=== PATIENT | male | born 1980 | race Caucasian/White ===

== ENCOUNTER → 2017-11-24 | Outpatient (CLI) | payer BC ==
--- NOTE | 2017-11-24 17:33 | CONS ---
CONSULTATION DATE OF SERVICE: 11/24/2017 37-year-old gentleman who has been evaluated [facility] for possible obstructive sleep apnea-hypopnea syndrome. HISTORY OF PRESENT ILLNESS/SLEEP-WAKE EVALUATION: Patient usual sleep schedule on working days from 10:00 p.m. to 6:00 a.m. and on the weekend it is at different times. Sometimes it takes more than 30 minutes for him to fall asleep, but not more than for 1 hour. He has TV set in bedroom. Usually sleeps on the side position or in other positions. He wakes up from sleep up to 4 times with up to 4 episodes of nocturia. According to his girlfriend, he snores and possibly has episodes of stopped breathing during the sleep. He may need starting to see dreams right at the beginning of falling asleep, although no history of sleep paralysis. No history of cataplexy. During the day the patient feels sleepy. [place] Sleepiness Scale increased to 11. He wakes up tired. He may take 1 nap after work around 4:00 pm. PAST MEDICAL HISTORY: Basically negative. PAST SURGICAL HISTORY: LASIK surgery on both eyes. MEDICATIONS: None. SOCIAL HISTORY: Negative for smoking. Alcohol consumption, once a week, beer. FAMILY HISTORY: Hypertension, acid reflux. REVIEW OF SYSTEMS: Multiple awakenings from sleep, sleepiness during the day, some episodes of dreaming while awake. PHYSICAL EXAM: GENERAL 37-year-old, a gentleman without distress. VITAL SIGNS BP 133/82, HR 60, RR 14, height 6 foot 0, weight 198.4, BMI 26.8, temperature 98, oxygen saturation at room air 99%. HEENT PERRLA, EOMI, evaluation of oropharynx showed extremely low position of soft palate. Mallampati IV. Restriction of nasal breathing and a wide neck 16-3/4 inches in circumference. NECK Supple, no JVD. Thyroid is not palpable. LUNGS Clear to percussion and to auscultation. Good air exchange. No wheezing or rhonchi. HEART S1, S2 regular. No murmurs, gallops, or rubs. ABDOMEN Soft and nontender. Bowel sounds are present. No organomegaly appreciated. EXTREMITIES No clubbing or cyanosis. [employer] Awake, alert, and oriented X3. Cranial nerves 2 to 7 intact. There is no fasciculation or atrophy. noted. No focal deficits observed. IMPRESSION: 1. Snoring, witnessed episodes of stopped breathing during the sleep, extremely low position of soft palate, sleepiness, wide neck. Obstructive sleep apnea-hypopnea syndrome. 2. Sleepiness with episodes of hypnagogic hallucinations. [place] Sleepiness Scale is 11, which is not very high, but the differential diagnosis should include possibility of narcolepsy. 3. Status post LASIK surgery bilaterally. PLAN: 1. Home sleep apnea test for evaluation of patient's breathing during the sleep. 2. Following plan after reviewing results of sleep study. 3. Sleep hygiene with regular time in bed for at least 8 hours. 4. No driving if feeling sleepiness. Thank you very much for referring this patient for consultation. Yusef Eugene MD, PhD, FAASM Diplomat of [employer] Supervisor of [facility] [place] MMODL / LEISAN: [id number] /
== END | disposition home or self-care (01) ==
LOC: SLEEP 16:13
PROVIDERS: ATTEND Internal Medicine
DX: G47.33 Obstructive sleep apnea (adult) (pediatric) (principal); Z98.890 Other specified postprocedural states
CPT/HCPCS: 99211

== ENCOUNTER → 2018-03-30 | Outpatient (CLI) | payer BC ==
--- NOTE | 2018-03-30 23:17 | MR ---
EXAMINATION TYPE: MR lumbar spine wo con DATE OF EXAM: 03/30/2018 COMPARISON: None HISTORY: Low back pain TECHNIQUE: Multiplanar, multisequence images of the lumbar spine were acquired. Lumbar vertebra have normal alignment. There is some narrowing and decreased signal in the disks at L 4-5 L5-S1. There is a large posterior left-sided L5-S1 lumbar disc herniation impinging on the latera l recess. There is small posterior L4-5 lumbar disc herniation. This is in the midline and towards th e right side. I see no bony destructive process. There is no compression fracture. There is no lumbar paraspinal mass. Sacroiliac joints appear intact. IMPRESSION: Large posterior left-sided L5-S1 lumbar disc herniation. Small posterior central and right-sided L4-5 lumbar disc herniation.
== END | disposition home or self-care (01) ==
LOC: RADMRIMAIN 19:19
PROVIDERS: ATTEND Internal Medicine
DX: M51.27 Other intervertebral disc displacement, lumbosacral region (principal)
CPT/HCPCS: 72148

== ENCOUNTER → 2018-05-25 | Outpatient (CLI) | payer BC ==
[2018-05-25 17:37] LABS: Basophils % (A) 1 %; Eosinophils # (A) 0.4 k/uL (0-0.7); Eosinophils % (A) 5 %; HCT 45.6 % (39.0-53.0); HGB 15.1 gm/dL (13.0-17.5); Lymphocytes # (A) 3.2 k/uL (1.0-4.8); Lymphocytes % (A) 37 %; MCH 33.7 pg (25.0-35.0); MCHC 33.1 g/dL (31.0-37.0); MCV 101.7 fL (80.0-100.0); Monocytes # (A) 0.6 k/uL (0-1.0); Monocytes % (A) 6 %; Neutrophils # (A) 4.3 k/uL (1.3-7.7); Neutrophils % (A) 49 %; Platelet Count 447 k/uL (150-450); RBC 4.48 m/uL (4.30-5.90); RDW 12.2 % (11.5-15.5); WBC 8.7 k/uL (3.8-10.6)
[2018-05-25 17:42] LABS: INR 0.9 (<1.2); Prothrombin Time 9.9 sec (9.0-12.0)
[2018-05-25 17:50] LABS: ALT 66 U/L (21-72); AST 35 U/L (17-59); Albumin 4.5 g/dL (3.5-5.0); Alkaline Phosphatase 60 U/L (38-126); Anion Gap 8 mmol/L; Bilirubin, Delta 0.2 mg/dL (0.0-0.2); Bilirubin,Unconjugated 0.3 mg/dL (0.0-1.1); Carbon Dioxide 28 mmol/L (22-30); Chloride 105 mmol/L (98-107); Glucose 88 mg/dL (74-99); Sodium 141 mmol/L (137-145); Total Bilirubin 0.5 mg/dL (0.2-1.3); Total Protein 7.2 g/dL (6.3-8.2)
[2018-05-25 17:52] LABS: Blood Urea Nitrogen 15 mg/dL (9-20)
== END | disposition home or self-care (01) ==
LOC: LABPAT 16:16
PROVIDERS: ATTEND Internal Medicine
DX: Z01.812 Encounter for preprocedural laboratory examination (principal)
CPT/HCPCS: 80051; 80076; 82565; 82947; 84520; 85025; 85610; 85730

== ENCOUNTER → 2018-06-08 | Outpatient (CLI) | payer BC | END | disposition home or self-care (01) | LOC: LABWHC1 10:00 | PROVIDERS: ATTEND Internal Medicine | DX: Z01.812 Encounter for preprocedural laboratory examination (principal) | CPT/HCPCS: 86850; 86900; 86901 ==

== ENCOUNTER 2018-06-19 12:55 | Day surgery (SDC) | payer BC ==
[2018-06-08 15:13] VITALS: BMI 27.3
[~2018-06-19 12:55] MED LIST: DEXAMETHASONE SOD PHOSPHATE 10 MG/ML 1 ML VIAL IV ONE; LACTATED RINGERS 1,000 ML IV SCH; LIDOCAINE 1% 20 ML VIAL (10MG/ML) FOR IV START INTRADERMA PRN; MIDAZOLAM (PF) 2 MG/2 ML VIAL IV PRN; SODIUM CHLORIDE 0.9% 1,000 ML IRRIGATION SCH; ceFAZolin IN SWFI 2 GM/20 ML SYRINGE IVP ONE; fentaNYL (PF) 50 MCG/ML 2 ML AMP IV PRN
[2018-06-19] MEDS ORDERED: ONDANSETRON 4 MG/2 ML VIAL IVP ONE (13:36)
[2018-06-19] MEDS ORDERED: MIDAZOLAM 2 MG/2 ML VIAL IV ONE (14:04)
[2018-06-19] MEDS ORDERED: fentaNYL (PF) 50 MCG/ML 2 ML AMP IV ONE (14:04)
[2018-06-19] MEDS ORDERED: BACITRACIN 50,000 UNIT, POLYMYXIN B 500,000 UNIT in SODIUM CHLORIDE 0.9% IRRIGATIO 1,00... IRRIGATION ONE (15:08)
[2018-06-19] MEDS ORDERED: SUCCINYLCHOLINE CHLORIDE 100 MG/5 ML SYR IV ONE (15:23)
[2018-06-19] MEDS ORDERED: MIDAZOLAM 2 MG/2 ML VIAL ONE (15:23)
[2018-06-19] MEDS ORDERED: ePHEDrine SULFATE/0.9% NACL/PF 50 MG/5 ML SYRINGE IV ONE (15:23)
[2018-06-19] MEDS ORDERED: fentaNYL (PF) 50 MCG/ML 2 ML AMP ONE (15:23)
[2018-06-19] MEDS ORDERED: GLYCOPYRROLATE 0.2 MG/ML 2 ML VIAL ONE (15:23)
[2018-06-19] MEDS ORDERED: PROPOFOL 10 MG/ML 20 ML VIAL IV ONE (15:23)
[2018-06-19] MEDS ORDERED: HYDROmorphone (PF) 1 MG/ML ONE (15:23)
[2018-06-19] MEDS ORDERED: THROMBIN (BOVINE) 5,000 UNIT VIAL TOPICAL ONE (15:29)
[2018-06-19] MEDS ORDERED: GELATIN SPONGE,ABSORB (LARGE) 1 EACH SPONGE TOPICAL ONE (15:30)
[2018-06-19] MEDS ORDERED: methylPREDNISolone ACETATE 40 MG/ML 1 ML VIAL INJ ONE (15:31)
[2018-06-19] MEDS ORDERED: LACTATED RINGERS 1,000 ML IV ONE ×2 (15:53)
[2018-06-19] MEDS ORDERED: BUPIVACAINE-EPI 0.5%-1:200,000 10 ML VIAL SQ ONE ×2 (15:53)
[2018-06-19] MEDS ORDERED: methylPREDNISolone ACETATE 40 MG/ML 1 ML VIAL MISCELLANE ONE (16:33)
[2018-06-19] MEDS ORDERED: HYDROmorphone 0.5 MG/0.5 ML SYRINGE IVP PRN ×2 (16:57→16:58)
[2018-06-19] MEDS ORDERED: BENZOCAINE/MENTHOL LOZENG 1 EACH LOZENGE MUCOUS MEM PRN (16:57)
[2018-06-19] MEDS ORDERED: HYDROmorphone 1 MG/ML 1 ML SYRINGE IVP PRN ×2 (16:57→16:58)
[2018-06-19] MEDS ORDERED: HYDROcodone/APAP 5-325MG 1 EACH TAB PO PRN ×2 (16:58)
[2018-06-19] MEDS ORDERED: KETOROLAC 30 MG/ML 1 ML VIAL IVP PRN (16:58)
[2018-06-19] MEDS ORDERED: TRIMETHOBENZAMIDE 100 MG/ML 2 ML VIAL IM PRN (16:58)
[2018-06-19] MEDS ORDERED: IBUPROFEN 200 MG TAB PO PRN (16:59)
[2018-06-19] MEDS ORDERED: SODIUM CHLORIDE 0.9% 1,000 ML IV SCH (17:00)
--- NOTE | 2018-06-19 17:11 | P.OP ---
Date of Procedure: 06/19/18 Preoperative Diagnosis: Herniated was pulposis L5-S1, left lower extremity radiculopathy, left lower extremity weakness, low back pain Postoperative Diagnosis: Same Anesthesia: GETA Pathology: none sent Condition: stable Disposition: PACU Description of Procedure: BRIEF OPERATIVE NOTE Preoperative Diagnosis: Herniated nucleus pulposus L5-S1, left lower extremity radiculopathy, left lower extremity weakness Postoperative Diagnosis: Same Procedure: Laminectomy and decompression L5-S1 Discectomy for decompression L5-S1 Use of fluoroscopic guidance Surgeon: Dr. Alvarez [employer] Manager: Rowdy Arvizu is present throughout the entire the case persistence during positioning, dissection, exposure, visualization, and all crucial elements of the case as well as closure. Anesthesia: General anesthesia Estimated blood loss: Approximately 50 mL Complications: None apparent Components implanted: None Disposition: To recovery room in good stable condition. OPERATIVE INDICATIONS The patient has been having issues in their lower back and lower extremities. He's been having severe low back and left lower extremity radicular pain and was having some weakness in his left lower extremity. Imaging showed a large extruded disc herniation at L5-S1 on the left which correlated well with his low back and lower extremity symptoms. He been through extensive conservative treatment however was continued have severe debility due to the disc herniation. The patient has been through conservative treatment. I felt that he would be a good candidate for laminectomy decompression with discectomy at L5 -S1 to help alleviate his symptoms and given the best chance of regaining strength in his left lower extremity. We discussed various treatment options including surgery, and the patient wishes to proceed with surgery We discussed the risk, patient's alternatives and benefits of surgery including but not limited to, risk of bleeding risk of infection, risk of need for further surgery , risk of decreased, loss of motion, loss of function, nerve damage, paralysis, heart attack, blindness and . OPERATIVE SUMMARY After discussing all the risks, patient alternatives and benefits at length, the patient elected to proceed with surgical intervention, signed informed consent, and presented for their procedure. The patient was seen and examined in the preoperative holding area and the surgical site was marked. The patient was given antibiotics and brought to the operating room. The patient was sedated and intubated by anesthesia in standard fashion. The patient was positioned on to the operating room table in a prone position on the appropriate frame which was well-padded and well molded. We were careful to pad any bony prominences and pressure points. We were careful to maintain the patient's cervical spine and good neutral alignment and position throughout. The patient was prepped and draped in a normal standard fashion. An appropriate timeout and keystone protocol performed. We were able to proceed with the surgery. Fluoroscopy was utilized to establish the appropriate level. The local wound area was infiltrated with local anesthetic. An incision was made at the midline longitudinally over the appropriate levels over L5-S1 approximately an inch and a half in length. Dissection was taken down subcutaneously to the level of the fascia which was split midline. Dissection was taken over the lamina. Intraoperative fluoroscopy was taken which showed a marker at the appropriate level at L5-S1. With the appropriate level positively confirmed, we were able to proceed with laminectomy. The wound was copiously irrigated and suctioned dry as had been done periodically throughout the case. I performed a laminectomy with a combination of curettes and a high-speed bur and Kerrison rongeurs. A small medial facetectomy was performed again further access. A partial foraminotomy was also performed. Portions of the ligamentum flavum were taken down to expose the dura and traversing nerve root. Note was made of obvious distortion and tension on the traversing nerve root due to a large extruded disc herniation. I was able to mobilize the traversing nerve root and gain access to the disc space. Note was made of obvious compression from the disc. Protecting the soft tissue structures, a small annulotomy was established. I was able to remove a very large extruded disc fragment from the space which gave excellent relief of the tension at the traversing nerve root. I was able to perform discectomy and remove any extruded disc fragments and any loose fragments from within the disc itself. There is some significant disc desiccation noted. I tried to preserve the disc annulus that appeared stable. There were some hard disc and posterior osteophytic spurs at the margins of the disc which I tried removed piecemeal as well. There were no further extruded fragments noted. There is no evidence of dural tear or leak. Good hemostasis maintained. The wound was copiously irrigated and suctioned dry. Good decompression and discectomy was noted. We were able to proceed with closure. The fascia was closed for a watertight closure. The subcuticular tissue was closed with absorbable suture. The wound was cleaned and dried and dressed with the appropriate dressing. The drapes were broken down. The patient was gently rolled back onto their hospital bed being careful to maintain their cervical spine and good neutral alignment and position. They were woken up by anesthesia, extubated, and brought to the recovery room in good stable condition. The patient will be admitted to the hospital for observation and for appropriate postoperative care, medical management and monitoring. We will continue to follow them closely about the postoperative course.
[2018-06-19 17:20] VITALS: TEMP 98.1
[2018-06-19 17:30] VITALS: RESP 16
[2018-06-19] MEDS ORDERED: SODIUM CHLORIDE 0.9% 1,000 ML IV ONE (18:10)
[2018-06-19 19:04] VITALS: BP 150/80; PULSE 86
[2018-06-20] MEDS ORDERED: ceFAZolin IN SWFI 2 GM/20 ML SYRINGE IVP SCH
--- NOTE | 2018-06-20 08:41 | FL ---
Fluoroscopy HISTORY: Lumbar laminectomy, discectomy 4 seconds fluoroscopy time supplied to the referring clinician. 1 intraoperative C-arm image documen ts the procedure. See dictated report from orthopedic surgery.
== END 2018-06-19 19:06 | disposition home or self-care (01) ==
LOC: OR 12:55
PROVIDERS: ATTEND Orthopaedic Surgery Orthopaedic Surgery of the Spine
DX: M51.17 Intervertebral disc disorders with radiculopathy, lumbosacral region (principal); M48.07 Spinal stenosis, lumbosacral region; M47.27 Other spondylosis with radiculopathy, lumbosacral region; M47.26 Other spondylosis with radiculopathy, lumbar region; E66.3 Overweight; Z68.27 Body mass index [BMI] 27.0-27.9, adult; Z79.1 Long term (current) use of non-steroidal anti-inflammatories (NSAID); F17.210 Nicotine dependence, cigarettes, uncomplicated
CPT/HCPCS: 86900; 86901; 86850; 63030; J2250; J1030; J2405; J3010; J1170; J0330; J2704

== ENCOUNTER 2019-05-12 15:49 | Emergency (ER) | payer BC ==
[2019-05-12 15:55] VITALS: TEMP 97.4
[2019-05-12] MEDS ORDERED: SODIUM CHLORIDE 0.9% 2,000 ML IV STA (16:10)
[2019-05-12] MEDS ORDERED: ONDANSETRON 4 MG/2 ML VIAL IVP STA (16:10)
--- NOTE | 2019-05-12 16:15 | ED ---
Abdominal Pain HPI - General Chief Complaint: Abdominal Pain Stated Complaint: ABDOMINAL PAIN Time Seen by Provider: 05/12/19 15:56 Source: patient, RN notes reviewed Mode of arrival: ambulatory Limitations: no limitations - History of Present Illness Initial Comments: 39-year-old male presents emergency Department chief complaint of bilateral flank pain, nausea vomiting. Patient states she's had a rough 3 weeks in which she's been treated multiple times for a respirator infection. Patient also stated that he had blood in his urine and they are unsure why. Patient does have a history of kidney stones. Patient denies any current dysuria or noted hematuria. Patient denies diarrhea constipation he states that his upper respiratory infection seems to be clearing up - Related Data Home Medications Medication Instructions Recorded Confirmed Ibuprofen [Motrin Ib] 800 mg PO Q4-6H PRN 06/08/18 06/19/18 Previous Rx's Medication Instructions Recorded HYDROcodone/APAP 5-325MG [[place] 5] 1 - 2 each PO Q6HR PRN #24 tab 06/19/18 Allergies Allergy/AdvReac Type Severity Reaction Status Date / Time No Known Allergies Allergy Verified 05/12/19 15:51 Review of Systems ROS Statement: Those systems with pertinent positive or pertinent negative responses have been documented in the HPI. ROS Other: All systems not noted in ROS Statement are negative. Past Medical History History of Any Multi-Drug Resistant Organisms: None Reported Additional Past Surgical History / Comment(s): partial laminectomy Past Psychological History: ADD/ADHD Smoking Status: Current every day smoker Past Alcohol Use History: Occasional Past Drug Use History: None Reported General Exam Limitations: no limitations General appearance: alert, in no apparent distress Head exam: Present: atraumatic, normocephalic, normal inspection Eye exam: Present: normal appearance, PERRL, EOMI. Absent: scleral icterus, conjunctival injection, periorbital swelling ENT exam: Present: normal exam, normal oropharynx, mucous membranes moist, TM's normal bilaterally Neck exam: Present: normal inspection, full ROM. Absent: tenderness, meningismus, lymphadenopathy Respiratory exam: Present: normal lung sounds bilaterally. Absent: respiratory distress, wheezes, rales, rhonchi, stridor Cardiovascular Exam: Present: regular rate, normal rhythm, normal heart sounds. Absent: systolic murmur, diastolic murmur, rubs, gallop, clicks GI/Abdominal exam: Present: soft, tenderness (Mild diffuse), normal bowel sounds. Absent: distended, guarding, rebound, rigid Back exam: Absent: CVA tenderness (R), CVA tenderness (L) Neurological exam: Present: alert, oriented X3 Skin exam: Present: warm, dry, intact, normal color. Absent: rash Course Vital Signs 05/12/19 15:51 Temperature 97.4 F L Pulse Rate 90 Respiratory 18 Rate Blood Pressure 129/84 O2 Sat by Pulse 99 Oximetry Medical Decision Making - Medical Decision Making Patient is greatly improved after antiemetics and IV fluids. Patient CT and labs unremarkable. He does have mild dehydration was hydrated. [facility] parameters were discussed. - Lab Data Result diagrams: 05/12/19 16:03 05/12/19 16:03 Lab Results 05/12/19 05/12/19 05/12/19 Range/Units 16:03 16:03 16:03 WBC 10.4 (3.8-10.6) k/uL RBC 4.89 (4.30-5.90) m/uL Hgb 16.3 (13.0-17.5) gm/dL Hct 48.3 (39.0-53.0) % MCV 98.9 (80.0-100.0) fL MCH 33.4 (25.0-35.0) pg MCHC 33.7 (31.0-37.0) g/dL RDW 11.7 (11.5-15.5) % Plt Count 445 (150-450) k/uL Neutrophils % 68 % Lymphocytes % 22 % Monocytes % 6 % Eosinophils % 0 % Basophils % 1 % Neutrophils # 7.0 (1.3-7.7) k/uL Lymphocytes # 2.3 (1.0-4.8) k/uL Monocytes # 0.6 (0-1.0) k/uL Eosinophils # 0.1 (0-0.7) k/uL Basophils # 0.1 (0-0.2) k/uL Sodium 139 (137-145) mmol/L Potassium 4.1 (3.5-5.1) mmol/L Chloride 99 (98-107) mmol/L Carbon Dioxide 29 (22-30) mmol/L Anion Gap 11 mmol/L BUN 9 (9-20) mg/dL Creatinine 0.78 (0.66-1.25) mg/dL Est GFR (CKD-EPI)AfAm >90 (>60 ml/min/1.73 sqM) Est GFR (CKD-EPI)NonAf >90 (>60 ml/min/1.73 sqM) Glucose 105 H (74-99) mg/dL Calcium 10.1 (8.4-10.2) mg/dL Magnesium 1.9 (1.6-2.3) mg/dL Total Bilirubin 1.0 (0.2-1.3) mg/dL AST 38 (17-59) U/L ALT 102 H (21-72) U/L Alkaline Phosphatase 103 (38-126) U/L Total Protein 7.9 (6.3-8.2) g/dL Albumin 4.7 (3.5-5.0) g/dL Amylase 104 (30-110) U/L Lipase 320 H (23-300) U/L Urine Color Yellow Urine Appearance Clear (Clear) Urine pH 8.0 (5.0-8.0) Ur Specific [place] 1.020 (1.001-1.035) Urine Protein Trace H (Negative) Urine Glucose (UA) Negative (Negative) Urine Ketones 2+ H (Negative) Urine Blood Negative (Negative) Urine Nitrite Negative (Negative) Urine Bilirubin Negative (Negative) Urine Urobilinogen <2.0 (<2.0) mg/dL Ur Leukocyte Esterase Negative (Negative) Disposition Clinical Impression: Nausea & vomiting, Dehydration Disposition: HOME SELF-CARE Condition: Stable Instructions (If sedation given, give patient instructions): Acute Nausea and Vomiting (ED) Additional Instructions: Please return to the Emergency Department if symptoms worsen or any other concerns. Is patient prescribed a controlled substance at d/c from ED?: No Referrals: Sebas Lopez MD [Primary Care Provider] - 1-2 days Time of Disposition: 17:06
[2019-05-12 16:19] LABS: Appearance,Urine Clear (Clear); Basophils # (A) 0.1 k/uL (0-0.2); Basophils % (A) 1 %; Bilirubin,Urine Negative (Negative); Blood,Urine Negative (Negative); Color,Urine Yellow; Eosinophils # (A) 0.1 k/uL (0-0.7); Eosinophils % (A) 0 %; Glucose,Urine (UA) Negative (Negative); HCT 48.3 % (39.0-53.0); HGB 16.3 gm/dL (13.0-17.5); Ketones,Urine 2+ (Negative); Leukocyte Esterase,Urine Negative (Negative); Lymphocytes # (A) 2.3 k/uL (1.0-4.8); Lymphocytes % (A) 22 %; MCH 33.4 pg (25.0-35.0); MCHC 33.7 g/dL (31.0-37.0); MCV 98.9 fL (80.0-100.0); Mean Platelet Volume 6.6; Monocytes # (A) 0.6 k/uL (0-1.0); Monocytes % (A) 6 %; Neutrophils % (A) 68 %; Nitrite,Urine Negative (Negative); Platelet Count 445 k/uL (150-450); Protein,Urine Trace (Negative); RBC 4.89 m/uL (4.30-5.90); RDW 11.7 % (11.5-15.5); Urobilinogen,Urine <2.0 mg/dL (<2.0); WBC 10.4 k/uL (3.8-10.6)
[2019-05-12 16:27] LABS: ALT 102 U/L (21-72); AST 38 U/L (17-59); African American GFR (CKD) >90 (>60 ml/min/1.73 sqM); Albumin 4.7 g/dL (3.5-5.0); Alkaline Phosphatase 103 U/L (38-126); Amylase 104 U/L (30-110); Anion Gap 11 mmol/L; Blood Urea Nitrogen 9 mg/dL (9-20); Calcium 10.1 mg/dL (8.4-10.2); Carbon Dioxide 29 mmol/L (22-30); Chloride 99 mmol/L (98-107); Glucose 105 mg/dL (74-99); Magnesium 1.9 mg/dL (1.6-2.3); Non-African American GFR(CKD) >90 (>60 ml/min/1.73 sqM); Potassium 4.1 mmol/L (3.5-5.1); Sodium 139 mmol/L (137-145); Total Protein 7.9 g/dL (6.3-8.2)
--- NOTE | 2019-05-12 16:48 | CT ---
EXAMINATION TYPE: CT abdomen pelvis w con DATE OF EXAM: 05/12/2019 COMPARISON: None. HISTORY: Bilateral flank and abdominal pain. Nausea, vomiting. CT DLP: 971.2 mGycm, Automated Exposure Control for Dose Reduction was Utilized. CONTRAST: CT scan of the abdomen and pelvis is performed without oral but with IV Contrast, patient injected wi th 100 mL of Isovue 300. FINDINGS: LUNG BASES: No significant abnormality is appreciated. LIVER/GB: No significant abnormality is appreciated. PANCREAS: No significant abnormality is seen. SPLEEN: No significant abnormality is seen. ADRENALS: No significant abnormality is seen. KIDNEYS: There is simple appearing thin-walled 1.5 cm cyst laterally right kidney mid to lower pole l evel. Symmetric cortical medullary uptake and excretion without hydronephrosis seen bilaterally. Scat tered pelvic phleboliths. BOWEL: Slightly suboptimal evaluation without enteric contrast. Normal-appearing appendix from cecum. No suspicious small or large bowel dilatation. Some diverticula in the sigmoid colon. No CT evidence for acute diverticulitis. PROSTATE/SEMINAL VESICLES: No gross abnormality seen. LYMPH NODES: No greater than 1cm abdominal or pelvic lymph nodes are appreciated. OSSEOUS STRUCTURES: Facet arthropathy lower lumbar levels. Mild to moderate disc space narrowing lumb osacral junction. 1 cm sclerotic lesion right proximal femur coronal image 56 suspicious for enchondr jayne or other benign etiology. OTHER: Small fat-containing right inguinal hernia. Scattered pelvic phleboliths. Moderate size umbili zaria hernia containing fat and tiny mesenteric vessels. IMPRESSION: No obstructing renal stones or hydronephrosis seen bilaterally. No bowel obstruction. No acute findings clearly seen.
[2019-05-12 17:34] VITALS: BP 142/99; PULSE 79; RESP 20
== END 2019-05-12 17:38 | disposition home or self-care (01) ==
LOC: EC 15:49
DX: E86.0 Dehydration (principal); R11.2 Nausea with vomiting, unspecified; R10.9 Unspecified abdominal pain; J06.9 Acute upper respiratory infection, unspecified; F17.200 Nicotine dependence, unspecified, uncomplicated; Z87.442 Personal history of urinary calculi
CPT/HCPCS: 36415; 80053; 82150; 83690; 83735; 85025; 81003; 74177; 99284; 96374; 96361; J2405; Q9967

== ENCOUNTER 2019-05-20 14:53 | Emergency (ER) | payer BC ==
[2019-05-20 15:09] VITALS: RESP 18
[2019-05-20] MEDS ORDERED: IBUPROFEN 800 MG TAB PO STA (16:11)
[2019-05-20] MEDS ORDERED: IPRATROPIUM-ALBUTEROL 3 ML NEB INHALATION STA (16:11)
--- NOTE | 2019-05-20 17:59 | XR ---
EXAMINATION TYPE: XR chest 2V DATE OF EXAM: 05/20/2019 COMPARISON: NONE HISTORY: Chest pain after coughing. Upper respiratory infection. TECHNIQUE: Frontal and lateral views of the chest are obtained. FINDINGS: There is no focal air space opacity, pleural effusion, or pneumothorax seen. The cardiac silhouette size is within normal limits. The osseous structures are intact. Mild multilevel degener ative changes of the spine. IMPRESSION: No acute cardiopulmonary process.
--- NOTE | 2019-05-20 18:07 | XR ---
EXAMINATION TYPE: XR lumbar spine 2 or 3V DATE OF EXAM: 05/20/2019 CLINICAL HISTORY: Back pain after coughing TECHNIQUE: Frontal and lateral images of the lumbar spine are obtained. COMPARISON: None FINDINGS: There is a very mild dextroscoliosis of the lumbar spine. There are 5 lumbar type vertebra l bodies identified. The lumbar spine shows satisfactory alignment without evidence of acute fractur e or dislocation. Vertebral body heights and disk space heights are within normal limits. Mild multil evel degenerative disc disease with intervertebral disc space narrowing at L4-L5 L5-S1 as well as fac et arthropathy. The overlying soft tissue appears unremarkable. IMPRESSION: No acute fracture or dislocation is seen in the lumbar spine. Mild multilevel degenerati ve disc disease of the lumbar spine.
--- NOTE | 2019-05-20 18:07 | XR ---
EXAMINATION TYPE: XR pelvis AP view DATE OF EXAM: 05/20/2019 CLINICAL HISTORY: Pelvic pain after coughing TECHNIQUE: A single AP view of the pelvis is obtained. COMPARISON: None. FINDINGS: There is no acute fracture/dislocation evident in the pelvis. Multiple phleboliths within the pelvis are noted. The hip and sacroiliac joints appear symmetric and unremarkable. The overlyin g soft tissue appears unremarkable. IMPRESSION: There is no acute fracture or dislocation in the pelvis.
[2019-05-20 18:55] VITALS: BP 121/81; PULSE 75; TEMP 98.7
--- NOTE | 2019-05-20 19:18 | ED ---
Back Pain HPI - General Chief Complaint: Back Pain/Injury Stated Complaint: Back pain Time Seen by Provider: 05/20/19 15:57 Source: patient Limitations: no limitations - History of Present Illness Initial Comments: Patient complains of cough. He states that he was coughing so hard he developed pain in the low back. He denies any nausea or vomiting or diaphoresis. He has no palpitations. He has no lightheadedness or dizziness. He has no focal weakness. He has no trouble tolerating oral intake. - Related Data Home Medications Medication Instructions Recorded Confirmed Ibuprofen [Motrin Ib] 800 mg PO Q4-6H PRN 06/08/18 06/19/18 Previous Rx's Medication Instructions Recorded HYDROcodone/APAP 5-325MG [[place] 5] 1 - 2 each PO Q6HR PRN #24 tab 06/19/18 Levofloxacin 750 mg PO DAILY #7 tablet 05/20/19 Methocarbamol [Robaxin-750] 1,500 mg PO TID PRN #30 tablet 05/20/19 Allergies Allergy/AdvReac Type Severity Reaction Status Date / Time No Known Allergies Allergy Verified 05/20/19 15:06 Review of Systems ROS Statement: Those systems with pertinent positive or pertinent negative responses have been documented in the HPI. ROS Other: All systems not noted in ROS Statement are negative. Past Medical History Past Medical History: No Reported History History of Any Multi-Drug Resistant Organisms: None Reported Additional Past Surgical History / Comment(s): partial laminectomy Past Psychological History: ADD/ADHD Smoking Status: Current every day smoker Past Alcohol Use History: Occasional Past Drug Use History: None Reported General Exam Limitations: no limitations General appearance: alert, in no apparent distress Head exam: Present: atraumatic, normocephalic, normal inspection Eye exam: Present: normal appearance, PERRL, EOMI. Absent: scleral icterus, conjunctival injection, periorbital swelling ENT exam: Present: normal exam, mucous membranes moist Neck exam: Present: normal inspection. Absent: tenderness, meningismus, lymphadenopathy Respiratory exam: Present: normal lung sounds bilaterally. Absent: respiratory distress, wheezes, rales, rhonchi, stridor Cardiovascular Exam: Present: regular rate, normal rhythm, normal heart sounds. Absent: systolic murmur, diastolic murmur, rubs, gallop, clicks GI/Abdominal exam: Present: soft, normal bowel sounds. Absent: distended, tenderness, guarding, rebound, rigid Extremities exam: Present: normal inspection, full ROM, normal capillary refill. Absent: tenderness, pedal edema, joint swelling, calf tenderness Back exam: Present: normal inspection Neurological exam: Present: alert, oriented X3, CN II-XII intact Psychiatric exam: Present: normal affect, normal mood Skin exam: Present: warm, dry, intact, normal color. Absent: rash Course Vital Signs 05/20/19 05/20/19 05/20/19 15:06 16:19 16:31 Temperature 99.5 F Pulse Rate 92 90 Respiratory 18 18 Rate Blood Pressure 135/88 O2 Sat by Pulse 99 Oximetry 05/20/19 05/20/19 16:40 18:54 Temperature 98.7 F Pulse Rate 88 75 Respiratory 18 Rate Blood Pressure 121/81 O2 Sat by Pulse 99 Oximetry Medical Decision Making - Medical Decision Making Patient complains of cough and acute onset low back pain. Imaging is all negative. I will prescribe the patient a muscle relaxer. Patient is appropriate for outpatient follow-up. Disposition Clinical Impression: Strain of lumbar region, Cough Disposition: HOME SELF-CARE Condition: Good Instructions (If sedation given, give patient instructions): Acute Low Back Pain (ED) Prescriptions: Levofloxacin 750 mg PO DAILY #7 tablet Methocarbamol [Robaxin-750] 1,500 mg PO TID PRN #30 tablet PRN Reason: Pain Is patient prescribed a controlled substance at d/c from ED?: No Referrals: Sebas Lopez MD [Primary Care Provider] - 1-2 days
== END 2019-05-20 19:49 | disposition home or self-care (01) ==
LOC: EC 14:53
DX: S39.012A Strain of muscle, fascia and tendon of lower back, initial encounter (principal); R05 Cough; F17.200 Nicotine dependence, unspecified, uncomplicated; X58.XXXA Exposure to other specified factors, initial encounter
CPT/HCPCS: 71046; 72100; 72170; 94640; 99283

== ENCOUNTER 2019-10-31 19:24 | Emergency (ER) | payer BC ==
[2019-10-31 19:36] VITALS: RESP 18; TEMP 98.4
[2019-10-31] MEDS ORDERED: SODIUM CHLORIDE 0.9% 1,000 ML IV ONE (19:56)
--- NOTE | 2019-10-31 20:04 | ED ---
General Adult HPI - General Chief complaint: Neuro Symptoms/Deficit Stated complaint: Tingling sensation left side Time Seen by Provider: 10/31/19 19:41 Source: patient Mode of arrival: ambulatory Limitations: no limitations - History of Present Illness Initial comments: 39-year-old male patient presents to the emergency department today for evaluation of tingling sensation to the left arm and left-sided face. Patient states this started last evening, resolved, then started again around 1600 today. Patient states he is also stings oracles in his eye. States that this did resolve. States he has a weird sensation to the left side of his head. Junior evangelista states he did experience something similar to this about a month ago but did resolve on its own. Patient denies any numbness to the hands. States he feels like his left arm may be slightly more weak than usual. Patient denies any leg symptoms. He denies any recent falls or head injuries. Patient denies any recent rash, fever, chills, cough, shortness of breath, chest pain, abdominal pain, nausea, vomiting, diarrhea, constipation, back pain, numbness, tingling, dizziness, hematuria, dysuria, urinary urgency, urinary frequency, or any other complaints. - Related Data Home Medications Medication Instructions Recorded Confirmed Ibuprofen [Motrin Ib] 800 mg PO Q4-6H PRN 06/08/18 06/19/18 Previous Rx's Medication Instructions Recorded HYDROcodone/APAP 5-325MG [[place] 5] 1 - 2 each PO Q6HR PRN #24 tab 06/19/18 Levofloxacin 750 mg PO DAILY #7 tablet 05/20/19 Methocarbamol [Robaxin-750] 1,500 mg PO TID PRN #30 tablet 05/20/19 Allergies Allergy/AdvReac Type Severity Reaction Status Date / Time No Known Allergies Allergy Verified 10/31/19 19:36 Review of Systems ROS Statement: Those systems with pertinent positive or pertinent negative responses have been documented in the HPI. ROS Other: All systems not noted in ROS Statement are negative. Past Medical History Past Medical History: No Reported History History of Any Multi-Drug Resistant Organisms: None Reported Additional Past Surgical History / Comment(s): partial laminectomy Past Psychological History: ADD/ADHD Smoking Status: Current every day smoker Past Alcohol Use History: Occasional Past Drug Use History: None Reported General Exam Limitations: no limitations General appearance: alert, in no apparent distress, other (Physical well- developed, well-nourished adult male patient in no acute distress. Vital signs upon presentation are temperature 98.4F, pulse 88, respirations 18, blood pressure 144/94, pulse ox 98% on room air.) Respiratory exam: Present: normal lung sounds bilaterally. Absent: respiratory distress, wheezes, rales, rhonchi, stridor Cardiovascular Exam: Present: regular rate, normal rhythm, normal heart sounds. Absent: systolic murmur, diastolic murmur, rubs, gallop, clicks GI/Abdominal exam: Present: soft, normal bowel sounds. Absent: distended, tenderness, guarding, rebound, rigid Neurological exam: Present: alert, oriented X3, CN II-XII intact Expanded Speech: Present: fluid speech Cranial nerves: EOM's Intact: Normal, Tongue Deviation: Normal, Nystagmus: Normal, Facial Sensation: Normal Motor strength exam: RUE: 5, LUE: 5, RLE: 5, LLE: 5 Eye Response: (4) open spontaneously Motor Response: (6) obeys commands Verbal Response: (5) oriented Marcel Total: 15 Psychiatric exam: Present: normal affect, normal mood Skin exam: Present: warm, dry, intact, normal color. Absent: rash Course Vital Signs 10/31/19 10/31/19 19:31 20:36 Temperature 98.4 F Pulse Rate 88 67 Respiratory 18 18 Rate Blood Pressure 144/94 148/98 O2 Sat by Pulse 98 98 Oximetry EKG Findings - EKG Comments: EKG Findings:: EKG obtained at 1945 shows normal sinus rhythm with a ventricular rate of 74, [place] interval 160, QRS duration 96, QT 410, QTC 455. No evidence of ST elevation or depression. Medical Decision Making - Medical Decision Making 39-year-old male patient presented to the emergency department today for evaluation of left-sided facial paresthesia left arm paresthesia. Physical examination is unremarkable. Sensation is intact to both sides. He is neurologically intact with no focal deficits. CT brain was negative. Labs reviewed and are unremarkable. Upon reevaluation patient is reporting feeling better. We discharged him up with his primary care physician for recheck in 1-2 days. Return parameters discussed in detail. He verbalizes understanding and agree with this plan. - Lab Data Result diagrams: 10/31/19 19:55 10/31/19 19:55 Lab Results 10/31/19 10/31/19 10/31/19 Range/Units 19:55 19:55 19:55 WBC 7.5 (3.8-10.6) k/uL RBC 4.72 (4.30-5.90) m/uL Hgb 15.2 (13.0-17.5) gm/dL Hct 46.7 (39.0-53.0) % MCV 99.0 (80.0-100.0) fL MCH 32.1 (25.0-35.0) pg MCHC 32.5 (31.0-37.0) g/dL RDW 12.3 (11.5-15.5) % Plt Count 414 (150-450) k/uL Neutrophils % 45 % Lymphocytes % 42 % Monocytes % 7 % Eosinophils % 3 % Basophils % 1 % Neutrophils # 3.3 (1.3-7.7) k/uL Lymphocytes # 3.1 (1.0-4.8) k/uL Monocytes # 0.5 (0-1.0) k/uL Eosinophils # 0.2 (0-0.7) k/uL Basophils # 0.1 (0-0.2) k/uL PT 10.0 (9.0-12.0) sec INR 1.0 (<1.2) APTT 24.9 (22.0-30.0) sec Sodium 139 (137-145) mmol/L Potassium 3.9 (3.5-5.1) mmol/L Chloride 102 (98-107) mmol/L Carbon Dioxide 31 H (22-30) mmol/L Anion Gap 6 mmol/L BUN 12 (9-20) mg/dL Creatinine 0.82 (0.66-1.25) mg/dL Est GFR (CKD-EPI)AfAm >90 (>60 ml/min/1.73 sqM) Est GFR (CKD-EPI)NonAf >90 (>60 ml/min/1.73 sqM) Glucose 102 H (74-99) mg/dL Calcium 9.9 (8.4-10.2) mg/dL Magnesium 2.1 (1.6-2.3) mg/dL Total Bilirubin 0.8 (0.2-1.3) mg/dL AST 24 (17-59) U/L ALT 23 (4-49) U/L Alkaline Phosphatase 60 (38-126) U/L Total Protein 7.2 (6.3-8.2) g/dL Albumin 4.5 (3.5-5.0) g/dL TSH 1.560 (0.465-4.680) mIU/L Urine Color Urine Appearance (Clear) Urine pH (5.0-8.0) Ur Specific [place] (1.001-1.035) Urine Protein (Negative) Urine Glucose (UA) (Negative) Urine Ketones (Negative) Urine Blood (Negative) Urine Nitrite (Negative) Urine Bilirubin (Negative) Urine Urobilinogen (<2.0) mg/dL Ur Leukocyte Esterase (Negative) Urine RBC (0-5) /hpf Urine WBC (0-5) /hpf Amorphous Sediment (None) /hpf Urine Opiates Screen (NotDetected) Ur Oxycodone Screen (NotDetected) Urine Methadone Screen (NotDetected) Ur Propoxyphene Screen (NotDetected) Ur Barbiturates Screen (NotDetected) U Tricyclic Antidepress (NotDetected) Ur Phencyclidine Scrn (NotDetected) Ur Amphetamines Screen (NotDetected) U Methamphetamines Scrn (NotDetected) U Benzodiazepines Scrn (NotDetected) Urine Cocaine Screen (NotDetected) U Marijuana (THC) Screen (NotDetected) 10/31/19 Range/Units 19:55 WBC (3.8-10.6) k/uL RBC (4.30-5.90) m/uL Hgb (13.0-17.5) gm/dL Hct (39.0-53.0) % MCV (80.0-100.0) fL MCH (25.0-35.0) pg MCHC (31.0-37.0) g/dL RDW (11.5-15.5) % Plt Count (150-450) k/uL Neutrophils % % Lymphocytes % % Monocytes % % Eosinophils % % Basophils % % Neutrophils # (1.3-7.7) k/uL Lymphocytes # (1.0-4.8) k/uL Monocytes # (0-1.0) k/uL Eosinophils # (0-0.7) k/uL Basophils # (0-0.2) k/uL PT (9.0-12.0) sec INR (<1.2) APTT (22.0-30.0) sec Sodium (137-145) mmol/L Potassium (3.5-5.1) mmol/L Chloride (98-107) mmol/L Carbon Dioxide (22-30) mmol/L Anion Gap mmol/L BUN (9-20) mg/dL Creatinine (0.66-1.25) mg/dL Est GFR (CKD-EPI)AfAm (>60 ml/min/1.73 sqM) Est GFR (CKD-EPI)NonAf (>60 ml/min/1.73 sqM) Glucose (74-99) mg/dL Calcium (8.4-10.2) mg/dL Magnesium (1.6-2.3) mg/dL Total Bilirubin (0.2-1.3) mg/dL AST (17-59) U/L ALT (4-49) U/L Alkaline Phosphatase (38-126) U/L Total Protein (6.3-8.2) g/dL Albumin (3.5-5.0) g/dL TSH (0.465-4.680) mIU/L Urine Color Yellow Urine Appearance Cloudy (Clear) Urine pH 6.5 (5.0-8.0) Ur Specific [place] 1.013 (1.001-1.035) Urine Protein Negative (Negative) Urine Glucose (UA) Negative (Negative) Urine Ketones Negative (Negative) Urine Blood Negative (Negative) Urine Nitrite Negative (Negative) Urine Bilirubin Negative (Negative) Urine Urobilinogen <2.0 (<2.0) mg/dL Ur Leukocyte Esterase Negative (Negative) Urine RBC 1 (0-5) /hpf Urine WBC 2 (0-5) /hpf Amorphous Sediment Rare H (None) /hpf Urine Opiates Screen Not Detected (NotDetected) Ur Oxycodone Screen Not Detected (NotDetected) Urine Methadone Screen Not Detected (NotDetected) Ur Propoxyphene Screen Not Detected (NotDetected) Ur Barbiturates Screen Not Detected (NotDetected) U Tricyclic Antidepress Not Detected (NotDetected) Ur Phencyclidine Scrn Not Detected (NotDetected) Ur Amphetamines Screen Not Detected (NotDetected) U Methamphetamines Scrn Not Detected (NotDetected) U Benzodiazepines Scrn Not Detected (NotDetected) Urine Cocaine Screen Not Detected (NotDetected) U Marijuana (THC) Screen Detected H (NotDetected) Disposition Clinical Impression: Paresthesia of left upper extremity, Facial paresthesia Disposition: HOME SELF-CARE Condition: Good Instructions (If sedation given, give patient instructions): Paresthesia (ED) Additional Instructions: Increase fluids. Rest. Follow up with your primary care physician for recheck in 1-2 days. Return to the emergency department for any new, worsening, or concerning symptoms. Is patient prescribed a controlled substance at d/c from ED?: No Referrals: Sebas Lopez MD [Primary Care Provider] - 1-2 days Time of Disposition: 21:02
[2019-10-31 20:10] LABS: Basophils # (A) 0.1 k/uL (0-0.2); Basophils % (A) 1 %; Eosinophils # (A) 0.2 k/uL (0-0.7); Eosinophils % (A) 3 %; HCT 46.7 % (39.0-53.0); HGB 15.2 gm/dL (13.0-17.5); Lymphocytes # (A) 3.1 k/uL (1.0-4.8); Lymphocytes % (A) 42 %; MCH 32.1 pg (25.0-35.0); MCHC 32.5 g/dL (31.0-37.0); Mean Platelet Volume 7.1; Monocytes # (A) 0.5 k/uL (0-1.0); Monocytes % (A) 7 %; Neutrophils # (A) 3.3 k/uL (1.3-7.7); Neutrophils % (A) 45 %; Platelet Count 414 k/uL (150-450); RBC 4.72 m/uL (4.30-5.90); RDW 12.3 % (11.5-15.5); WBC 7.5 k/uL (3.8-10.6)
[2019-10-31 20:15] LABS: Amorphous Sediment,Urine Rare /hpf; Appearance,Urine Cloudy (Clear); Bilirubin,Urine Negative (Negative); Blood,Urine Negative (Negative); Color,Urine Yellow; Glucose,Urine (UA) Negative (Negative); Ketones,Urine Negative (Negative); Leukocyte Esterase,Urine Negative (Negative); Nitrite,Urine Negative (Negative); PH, Urine 6.5 (5.0-8.0); Protein,Urine Negative (Negative); RBC,Urine 1 /hpf (0-5); Specific Gravity,Urine 1.013 (1.001-1.035); Urobilinogen,Urine <2.0 mg/dL (<2.0); WBC,Urine 2 /hpf (0-5)
[2019-10-31 20:18] LABS: Partial Thromboplastin Time 24.9 sec (22.0-30.0)
[2019-10-31 20:19] LABS: ALT 23 U/L (4-49); AST 24 U/L (17-59); African American GFR (CKD) >90 (>60 ml/min/1.73 sqM); Albumin 4.5 g/dL (3.5-5.0); Alkaline Phosphatase 60 U/L (38-126); Amphetamine Screen,Urine Not Detected (NotDetected); Anion Gap 6 mmol/L; Barbiturate Screen,Urine Not Detected (NotDetected); Benzodiazepines Screen,Urine Not Detected (NotDetected); Blood Urea Nitrogen 12 mg/dL (9-20); Calcium 9.9 mg/dL (8.4-10.2); Carbon Dioxide 31 mmol/L (22-30); Chloride 102 mmol/L (98-107); Cocaine Screen,Urine Not Detected (NotDetected); Glucose 102 mg/dL (74-99); Magnesium 2.1 mg/dL (1.6-2.3); Methadone Screen, Urine Not Detected (NotDetected); Non-African American GFR(CKD) >90 (>60 ml/min/1.73 sqM); Opiate Screen,Urine Not Detected (NotDetected); Oxycodone Screen, Urine Not Detected (NotDetected); Phencyclidine Screen,Urine Not Detected (NotDetected); Potassium 3.9 mmol/L (3.5-5.1); Sodium 139 mmol/L (137-145); Total Bilirubin 0.8 mg/dL (0.2-1.3); Total Protein 7.2 g/dL (6.3-8.2); Tricyclic Antidepressant,Urine Not Detected (NotDetected); Urn Cannabinoid Scrn Detected (NotDetected)
--- NOTE | 2019-10-31 20:38 | CT ---
EXAMINATION TYPE: CT brain wo con DATE OF EXAM: 10/31/2019 COMPARISON: HISTORY: left sided facial and arm numbness CT DLP: 1098.[address] of the brain was performed. The ventricles, basal cisterns and sulci overlying the cerebral convexities demonstrate a normal appe arance. There is no evidence for intracranial hemorrhage or sulcal effacement. No mass effects are seen. Osseous calvarium is intact. If symptoms persist consider MRI as clinically warranted. IMPRESSION: 1. No acute intracranial process is seen at this time.
[2019-10-31 21:00] VITALS: BP 148/98; PULSE 67
== END 2019-10-31 21:12 | disposition home or self-care (01) ==
LOC: EC 19:24
DX: R20.2 Paresthesia of skin (principal); F17.200 Nicotine dependence, unspecified, uncomplicated; K13.29 Other disturbances of oral epithelium, including tongue; Z98.890 Other specified postprocedural states
CPT/HCPCS: 36415; 70450; 80053; 80306; 81001; 83735; 84443; 85025; 85610; 85730; 93005; 96360; 99284

== ENCOUNTER 2020-11-15 12:28 | Observation (INO) | payer BC ==
[2020-11-15] MEDS ORDERED: ASPIRIN 81 MG PO STA (12:49)
[2020-11-15 13:21] LABS: Basophils # (A) 0.1 k/uL (0-0.2); Basophils % (A) 1 %; Eosinophils # (A) 0.2 k/uL (0-0.7); Eosinophils % (A) 3 %; HCT 45.1 % (39.0-53.0); HGB 15.5 gm/dL (13.0-17.5); Lymphocytes # (A) 2.6 k/uL (1.0-4.8); Lymphocytes % (A) 30 %; MCH 33.7 pg (25.0-35.0); MCHC 34.3 g/dL (31.0-37.0); MCV 98.2 fL (80.0-100.0); Mean Platelet Volume 6.8; Monocytes # (A) 0.6 k/uL (0-1.0); Monocytes % (A) 7 %; Neutrophils # (A) 4.7 k/uL (1.3-7.7); Neutrophils % (A) 56 %; Platelet Count 366 k/uL (150-450); RDW 11.8 % (11.5-15.5); WBC 8.4 k/uL (3.8-10.6)
--- NOTE | 2020-11-15 13:22 | ED ---
Chest Pain HPI - General Chief Complaint: Chest Pain Stated Complaint: chest pain, lt arm numbness Time Seen by Provider: 11/15/20 12:48 Source: patient, RN notes reviewed Mode of arrival: wheelchair Limitations: no limitations - History of Present Illness Initial Comments: 40-year-old male presents emergency from chief complaint of chest discomfort. P atient states he's been having some on-and-off symptoms in which she's been referred to cardiology. Patient states that today's symptoms worsen have not alleviated he does admit he has some left arm numbness occasionally. No prior cardiac disease. Patient states that he has seen his primary care physician several times for this. Denies filled for breath denies diaphoresis, abdominal pain, nausea vomiting no prior lung disease. - Related Data Home Medications Medication Instructions Recorded Confirmed Ibuprofen [Motrin Ib] 800 mg PO Q4-6H PRN 06/08/18 06/19/18 Previous Rx's Medication Instructions Recorded HYDROcodone/APAP 5-325MG [[place] 5] 1 - 2 each PO Q6HR PRN #24 tab 06/19/18 Methocarbamol [Robaxin-750] 1,500 mg PO TID PRN #30 tablet 05/20/19 levoFLOXacin 750 mg PO DAILY #7 tablet 05/20/19 Allergies Allergy/AdvReac Type Severity Reaction Status Date / Time No Known Allergies Allergy Verified 11/15/20 12:38 Review of Systems ROS Statement: Those systems with pertinent positive or pertinent negative responses have been documented in the HPI. ROS Other: All systems not noted in ROS Statement are negative. Past Medical History Past Medical History: No Reported History History of Any Multi-Drug Resistant Organisms: None Reported Past Surgical History: Back Surgery Additional Past Surgical History / Comment(s): partial laminectomy Past Psychological History: ADD/ADHD Smoking Status: Current every day smoker Past Alcohol Use History: Occasional Past Drug Use History: None Reported General Exam Limitations: no limitations General appearance: alert, in no apparent distress Head exam: Present: atraumatic, normocephalic, normal inspection Neck exam: Present: normal inspection, full ROM. Absent: tenderness, meningismus, lymphadenopathy Respiratory exam: Present: normal lung sounds bilaterally. Absent: respiratory distress, wheezes, rales, rhonchi, stridor Cardiovascular Exam: Present: regular rate, normal rhythm, normal heart sounds. Absent: systolic murmur, diastolic murmur, rubs, gallop, clicks GI/Abdominal exam: Present: soft, normal bowel sounds. Absent: distended, tenderness, guarding, rebound, rigid Skin exam: Present: warm, dry, intact, normal color. Absent: rash Course Vital Signs 11/15/20 12:36 Temperature 98.2 F Pulse Rate 83 Respiratory 20 Rate Blood Pressure 147/101 O2 Sat by Pulse 98 Oximetry Chest Pain MDM - MDM 4-year-old presented for chest pain. Patient's initial workup was negative. Patient patient will be admitted for cardiac rule out Disposition Clinical Impression: Chest pain Disposition: ADMITTED IP TO THIS HOSP Condition: Fair Referrals: Nonstaff,Physician [Primary Care Provider] - 1-2 days
[2020-11-15 13:39] LABS: Potassium 3.8 mmol/L (3.5-5.1)
--- NOTE | 2020-11-15 13:40 | XR ---
EXAMINATION TYPE: XR chest 2V DATE OF EXAM: 11/15/2020 COMPARISON: 05/20/2019 HISTORY: Chest pain TECHNIQUE: Frontal and lateral views of the chest are obtained. FINDINGS: There is no focal air space opacity, pleural effusion, or pneumothorax seen. The cardiac silhouette size is within normal limits. The osseous structures are intact. IMPRESSION: No acute cardiopulmonary process. No interval change.
[2020-11-15 13:41] LABS: ALT 29 U/L (4-49); AST 28 U/L (17-59); African American GFR (CKD) >90 (>60 ml/min/1.73 sqM); Albumin 4.2 g/dL (3.5-5.0); Alkaline Phosphatase 66 U/L (38-126); Anion Gap 4 mmol/L; Blood Urea Nitrogen 10 mg/dL (9-20); Calcium 9.3 mg/dL (8.4-10.2); Carbon Dioxide 27 mmol/L (22-30); Chloride 106 mmol/L (98-107); Glucose 110 mg/dL (74-99); INR 0.9 (<1.2); Magnesium 1.9 mg/dL (1.6-2.3); Non-African American GFR(CKD) >90 (>60 ml/min/1.73 sqM); Partial Thromboplastin Time 23.9 sec (22.0-30.0); Prothrombin Time 10.1 sec (9.0-12.0); Sodium 137 mmol/L (137-145); Total Bilirubin 0.4 mg/dL (0.2-1.3); Total Protein 6.6 g/dL (6.3-8.2)
[2020-11-15] MEDS ORDERED: HEPARIN SODIUM 1,000 UN/ML (10ML VL) IV ONE (14:07)
[2020-11-15] MEDS ORDERED: NITROGLYCERIN SL TABS 0.4 MG TAB SUBLINGUAL PRN (14:07)
[2020-11-15] MEDS ORDERED: HEPARIN SOD,PORK IN 0.45% NACL 25,000 UNIT in 0.45% NACL 1 250ML.BAG IV SCH (14:15)
--- NOTE | 2020-11-15 16:46 | CONS ---
CONSULTATION Mr. Cooper is a 40-year-old male with no prior cardiac history who presented with symptoms of chest discomfort. He has been having discomfort on and off for the last month or 2. The discomfort is quite random in timing and in duration and not associated with any other symptoms. Because of the recurrence of the symptoms, he came into the emergency room and was admitted to be evaluated. The patient is active physically, exercises on a regular basis, has no exertional chest discomfort. He denies any dizziness or palpitation. No syncope. No clear PND, orthopnea, or peripheral edema. With the discomfort, he gets sometimes tingling in the fingers and in the face. His coronary risk factors are positive for smoking. He has no documented history of hypertension, hyperlipidemia, or diabetes. He takes no medication on a regular basis. He takes omeprazole occasionally. SOCIAL HISTORY: He drinks caffeine as well as drinks beer about 3 times a week, up to 10 packs. REVIEW OF SYSTEMS: RESPIRATORY SYSTEM: No cough or fever. No wheezing. GI SYSTEM: No recent GI bleeding or peptic ulcer disease. SYSTEM: No dysuria or hematuria. NERVOUS SYSTEM: No stroke or seizure. PHYSICAL EXAMINATION: 40-year-old male, alert, oriented, in no apparent distress. Blood pressure 147/100 with a heart rate in the 80s. HEAD: Normocephalic. EYES: Sclerae anicteric. NECK: Good upstroke, no bruit, no jugular venous distention. LUNGS: Clear to auscultation. HEART: Regular rhythm S1, S2. No S3. No rub or gallop. ABDOMEN: Soft, nontender. Positive bowel sounds. No organomegaly. EXTREMITIES: No edema. Intact distal pulses. LAB DATA: EKG reveals sinus mechanism, normal axis and intervals with no acute ST-segment changes. Troponin less than 0.012. BUN and creatinine 10 and 0.72. Potassium 3.8, hemoglobin of 15.5. IMPRESSION: 1. Chest discomfort of unclear etiology, atypical for ischemic heart disease. No evidence to suggest acute myocardial infarction. 2. Hypertension, quite elevated, not documented in the past. 3. Chronic tobacco use. 4. Alcohol consumption. RECOMMENDATION: I have recommended to obtain echocardiogram with Doppler. Will obtained evaluation of his serial enzymes and evaluation of his lipids. I would recommend depending on his cardiac enzyme and his progress, down the road probably he would require a stress test to further assess his status and guide his treatment. In the meantime, he will be started on lisinopril 5 mg twice a day for his blood pressure. I have encouraged him to stop smoking and decrease his alcohol intake. Thank you for this consult. Will follow with you. GERRY / KALIA: [id number] /
[2020-11-15] MEDS ORDERED: ALPRAZolam 0.25 MG TAB PO PRN (17:49)
[2020-11-15] MEDS ORDERED: HYDROcodone/APAP 5-325MG 1 EACH TAB PO PRN (17:49)
[2020-11-15] MEDS ORDERED: TEMAZEPAM 15 MG CAP PO PRN (17:49)
[2020-11-15 18:11] VITALS: RESP 18
--- NOTE | 2020-11-15 18:14 | HP ---
HISTORY AND PHYSICAL DATE OF SERVICE: 11/15/2020 CHIEF COMPLAINT: Chest pain. HISTORY OF PRESENT ILLNESS: This 49-year-old gentleman with a past medical history of multiple medical problems, back surgery, partial omentectomy, ADHD, being followed by primary physician, Dr. Agarwal in [facility], was complaining of chest pain. The pain was mostly situated in the left side of the chest which was pressure type of character. The patient has had on and off symptoms and the symptoms are not elevated. Also, left arm numbness. Patient came to [facility] and was admitted for evaluation and treatment. The initial troponins are negative. Otherwise, EKG also did not show any acute abnormality. Cardiology saw the patient. Recommended stress test for further assessment. The patient is started on SANDRA inhibitors. There is no history of fever, rigors or chills. No history of headache, loss of consciousness or seizures. PAST MEDICAL HISTORY: History of back surgery. Partial laminectomy, ADD, ADHD, history of nicotine dependence. MEDICATIONS: None. ALLERGIES: None. FAMILY HISTORY: No history of heart disease or strokes in the family. SOCIAL HISTORY: History of smoking. Occasional alcohol intake. REVIEW OF SYSTEMS: ENT: No diminished vision. No diminished hearing. CARDIOVASCULAR as mentioned earlier. RESPIRATORY: As mentioned earlier. GI no nausea, no vomiting. no dysuria. NERVOUS SYSTEM: No numbness or weakness. ALLERGY/IMMUNOLOGY: No asthma or hay fever. MUSCULOSKELETAL: As mentioned earlier. HEMATOLOGY/ONCOLOGY: No history of anemia. ENDOCRINE: No history of diabetes. CONSTITUTIONAL: As mentioned earlier. DERMATOLOGY: Negative. RHEUMATOLOGY negative. PSYCHIATRY as mentioned earlier. PHYSICAL EXAMINATION: Alert and oriented times three. Pulse 69. Blood pressure 154/109, respirations 16, temperature 98.4, pulse ox 98% on room air. HEENT: Conjunctivae normal. NECK: No JVD. CARDIOVASCULAR: S1, S2 muffled. RESPIRATION: Breath sounds diminished in the bases. No rhonchi. No crackles. ABDOMEN: Soft, nontender. No mass palpable. LEGS: No edema. No swelling. NERVOUS SYSTEM: Higher functions as mentioned earlier. Moves all 4 limbs. No focal motor or sensory deficits. LYMPHATICS: No lymph nodes palpable in the neck, axillae or groin. SKIN: No ulcer. No rash and no bleeding. JOINTS: No active deforming arthropathy. LABS: CBC within normal limits. Glucose 110. ASSESSMENT: 1. Chest pain possible unstable angina. 2. Hypertension. 3. History of back surgery. 4. History of partial laminectomy. 5. History attention-deficit disorder, attention-deficit/hyperactivity disorder. 6. History of nicotine dependence. RECOMMENDATIONS AND DISCUSSION: This 40-year-old gentleman who presented with multiple complex medical issues, we will monitor the patient closely, continue the current medications, unstable angina protocol, symptomatic treatment will be provided. Closely follow with Cardiology. Rule out myocardial infarction. Guarded prognosis because of multiple complex medical issues. Further recommendations to follow. Also recommend close followup with primary physician. Smoking cessation has been advised. MMODL / IJN: [id number] /
[2020-11-15 18:50] LABS: Appearance,Urine Clear (Clear); Bilirubin,Urine Negative (Negative); Blood,Urine Negative (Negative); Color,Urine Light Yellow; Glucose,Urine (UA) Negative (Negative); Ketones,Urine Negative (Negative); Leukocyte Esterase,Urine Negative (Negative); Nitrite,Urine Negative (Negative); PH, Urine 6.5 (5.0-8.0); Protein,Urine Negative (Negative); Specific Gravity,Urine 1.007 (1.001-1.035); Urobilinogen,Urine <2.0 mg/dL (<2.0)
[2020-11-15] MEDS: NICOTINE 14MG/24HR PATCH TRANSDERM SCH (19:35)
[2020-11-15] MEDS ORDERED: amLODIPine 5 MG TAB PO STA (20:51)
[2020-11-15] MEDS: HEPARIN SODIUM 1,000 UN/ML (10ML VL) IV PRN (22:15)
[2020-11-15] MEDS: lisinopriL 5 MG TAB PO SCH (22:15)
[2020-11-15 23:31] LABS: Prothrombin Time 10.6 sec (9.0-12.0)
[2020-11-16 04:48] LABS: African American GFR (CKD) >90 (>60 ml/min/1.73 sqM); Anion Gap 6 mmol/L; Blood Urea Nitrogen 7 mg/dL (9-20); Calcium 9.3 mg/dL (8.4-10.2); Carbon Dioxide 25 mmol/L (22-30); Chloride 108 mmol/L (98-107); Glucose 115 mg/dL (74-99); Non-African American GFR(CKD) >90 (>60 ml/min/1.73 sqM); Potassium 3.7 mmol/L (3.5-5.1); Sodium 139 mmol/L (137-145)
[2020-11-16] MEDS: HEPARIN SODIUM 1,000 UN/ML (10ML VL) IV PRN (05:03)
[2020-11-16] MEDS ORDERED: PANTOPRAZOLE 40 MG TABLET PO SCH (07:30)
[2020-11-16 08:49] VITALS: BP 143/82; PULSE 61; TEMP 97.8
[2020-11-16] MEDS ORDERED: ASPIRIN 325 MG TAB PO SCH (09:00)
[2020-11-16] MEDS ORDERED: ASPIRIN 81 MG PO SCH (09:00)
[2020-11-16] MEDS: NICOTINE 14MG/24HR PATCH TRANSDERM SCH (09:09)
[2020-11-16] MEDS: lisinopriL 5 MG TAB PO SCH (09:13)
[2020-11-16 09:31] LABS: HCT 46.3 % (39.6-50.0); HGB 15.6 g/dL (13.0-17.0); MCHC 33.7 g/dL (32.0-37.0); MCV 100.9 fL (80.0-97.0); Mean Platelet Volume 10.5 fL (9.5-12.2); Platelet Count 386 X 10*3/uL (140-440); RBC 4.59 X 10*6/uL (4.40-5.60); RDW 12.3 % (11.5-14.5)
[2020-11-16 10:11] LABS: Chol/HDL Ratio 5.32; LDL Cholesterol,Calculated 95.6 mg/dL (0.0-131.0); VLDL Calculation 51.4 mg/dL (5.00-40.00)
[2020-11-16 12:05] LABS: Basophils % (A) 1.1 %; Eosinophils # (A) 0.39 X 10*3/uL (0.04-0.35); Eosinophils % (A) 4.2 %; Lymphocytes # (A) 4.04 X 10*3/uL (0.90-5.00); Lymphocytes % (A) 43.9 %; Monocytes # (A) 0.85 X 10*3/uL (0.20-1.00); Monocytes % (A) 9.2 %; Neutrophils % (A) 41.4 %
--- NOTE | 2020-11-16 14:46 | P.PN ---
Subjective Progress Note Date: 11/16/20 This a 40-year-old gentleman with no prior cardiac history who presented with symptoms of chest discomfort. He has a history of smoking and drinks up to 10 beers 3 times a week.. He's been having discomfort on and off for the last couple of months. The discomfort is random in timing and induration and not associated with any other symptoms. Because of the recurrence of the symptoms he came to the emergency department and submitted for evaluation. He does have an appointment scheduled on the with a powder operator somewhere in [facility]. Patient remains active physically and exercises on a regular basis with no exertional chest discomfort. He denies any dizziness or palpitation. He's had no syncope. He has no orthopnea, PND or edema. EKG showed sinus mechanism with no acute ST segment changes. Troponins have been negative 3. Lipids show total cholesterol 181, LDL 95.6, HDL 34, triglycerides 257. He has been on heparin drip per protocol. Currently on aspirin 81 mg by mouth daily, lisinopril 5 mg by mouth daily and Protonix. By pressure remains elevated but better controlled this morning at 143/82. On examination he is resting comfortably in bed. He's had no further complaints of chest discomfort. Objective - Vital Signs Vital signs: Vital Signs Temp 97.8 F 11/16/20 07:00 Pulse 61 11/16/20 07:00 Resp 18 11/16/20 08:00 BP 143/82 11/16/20 07:00 Pulse Ox 99 11/16/20 07:00 Intake & Output 11/15/20 11/16/20 11/16/20 18:59 06:59 18:59 Intake Total 141.833 Balance 141.833 Weight 95.254 kg 95.254 kg Intake: Intake, IV Titration 141.833 Amount Heparin Sod,Pork in 0.45% 141.833 NaCl 25,000 unit In 0.45 % NaCl 1 250ml.bag @ 10. 498 UNITS/KG/HR 10 mls/hr IV .Q24H [facility] Rx#: [id number] Other: # Voids 2 - Exam PHYSICAL EXAMINATION: HEENT: Head is atraumatic, normocephalic. Pupils equal, round. Neck is supple. There is no elevated jugular venous pressure. HEART EXAMINATION: Heart sounds regular, S1 and S2 normal. No murmur or gallop heard. CHEST EXAMINATION: Lungs are clear to auscultation. No chest wall tenderness is noted on palpation or with deep breathing. ABDOMEN: Soft, nontender. Bowel sounds are heard. No organomegaly noted. EXTREMITIES: 2+ peripheral pulses with no evidence of peripheral edema and no calf tenderness noted. NEUROLOGIC patient is awake, alert and oriented x3. . - Labs CBC & Chem 7: 11/16/20 04:00 11/16/20 04:00 Labs: Abnormal Lab Results - Last 24 Hours (Table) 11/15/20 11/15/20 11/15/20 Range/Units 13:10 19:32 20:50 MCV (80.0-97.0) fL MCH (27.0-32.0) pg APTT 34.6 H 35.0 H (22.0-30.0) sec Chloride (98-107) mmol/L BUN (9-20) mg/dL Glucose 110 H (74-99) mg/dL Triglycerides (0.0-149.0) mg/dL VLDL Cholesterol, Calc (5.00-40.00) mg/dL HDL Cholesterol (40.0-60.0) mg/dL 11/16/20 11/16/20 11/16/20 Range/Units 04:00 04:00 04:00 MCV 100.9 H (80.0-97.0) fL MCH 34.0 H (27.0-32.0) pg APTT (22.0-30.0) sec Chloride 108 H (98-107) mmol/L BUN 7 L (9-20) mg/dL Glucose 115 H (74-99) mg/dL Triglycerides 257.0 H (0.0-149.0) mg/dL VLDL Cholesterol, Calc 51.40 H (5.00-40.00) mg/dL HDL Cholesterol 34.0 L (40.0-60.0) mg/dL 11/16/20 Range/Units 04:00 MCV (80.0-97.0) fL MCH (27.0-32.0) pg APTT 32.0 H (22.0-30.0) sec Chloride (98-107) mmol/L BUN (9-20) mg/dL Glucose (74-99) mg/dL Triglycerides (0.0-149.0) mg/dL VLDL Cholesterol, Calc (5.00-40.00) mg/dL HDL Cholesterol (40.0-60.0) mg/dL Assessment and Plan Assessment: #1 chest discomfort of unclear etiology, atypical for ischemic heart disease [place] and troponins negative times and no ischemic changes noted on EKG #2 hypertension, not documented in the past #3 chronic tobacco use #4 alcohol consumption Plan: From cardiology's perspective the patient has been chest pain-free.. The patient does verbalize that he has an appointment tomorrow and would prefer to be discharged home and follow-up as an outpatient. From our perspective patient may be discharged home we will schedule him in the office for outpatient echoc ardiogram and stress echo and a follow-up visit. PRECISION LENS TECHNICIAN note has been reviewed, I agree with a documented findings and plan of care. Patient was seen and examined.
--- NOTE | 2020-11-16 22:53 | DS ---
DISCHARGE SUMMARY DATE OF SERVICE: 11/16/2020. FINAL DIAGNOSES: 1. Chest pain, myocardial infarction ruled out, possible unstable angina. 2. Rule out coronary artery disease. 3. Hypertension. 4. History of back surgery. 5. History of partial laminectomy. 6. History of attention-deficit disorder, attention-deficit/hyperactivity disorder. 7. History of nicotine dependence. DISCHARGE DISPOSITION: The patient will be discharged in stable condition with guarded prognosis. Cardiology recommend outpatient followup and outpatient stress test. HISTORY OF PRESENT ILLNESS: This is a 40-year-old gentleman with a past medical history of multiple medical problems admitted with chest pain. Myocardial infarction ruled out. Cardiology saw the patient and recommended outpatient followup and stress test. The patient is keen on going home. Lisinopril was started. On exam, vitals stable. Cardiovascular: S1, S2. Abdomen soft. Nervous system: No focal deficits. DISCHARGE ADVICE AND MEDICATIONS: 1. Diet is cardiac diet. 2. Activity limited until followup. 3. Zestril 5 mg p.o. b.i.d. 4. Follow up with primary physician in 1-2 days. 5. Follow up with Cardiology as recommended. MMODL / IJN: [id number] /
== END 2020-11-16 15:09 | disposition home or self-care (01) ==
LOC: EC 12:28 → 6NMEDSUR 14:17
PROVIDERS: ADMIT Hospitalist; ATTEND Hospitalist
DX: R07.89 Other chest pain (principal); I10 Essential (primary) hypertension; R20.0 Anesthesia of skin; F17.200 Nicotine dependence, unspecified, uncomplicated; F90.9 Attention-deficit hyperactivity disorder, unspecified type; Z20.822 Contact with and (suspected) exposure to COVID-19; Z98.890 Other specified postprocedural states
CPT/HCPCS: 96366 ×3; 96365; 99285; 36415; 94760; 93005; 80061; 80053; 80048; 83735; 84484; 85025 ×2; 85610; 85730 ×2; 81003; 87635; 71046; G0378 ×2; J1644 ×3

== ENCOUNTER → 2024-12-03 | Outpatient (CLI) | payer BC ==
--- NOTE | 2024-12-03 12:56 | CT ---
EXAMINATION TYPE: CT abdomen pelvis wo con DATE OF EXAM: 12/03/2024 12:34 PM COMPARISON: None. CLINICAL INDICATION: Male, 44 years old with history of R10.9 UNSPECIFIED ABDOMINAL PAIN, left flank pain TECHNIQUE: Axial images were obtained from above the diaphragm to the pubic rami in the axial plane a t 5 mm thick sections. Reconstructed images are reviewed on the computer in the coronal plane. CONTRAST: mL of . Study performed without Oral Contrast DLP: 699.7 mGycm, Automated exposure control for dose reduction was used. FINDINGS: Limited CT sections are obtained the lung bases. The lung bases are clear. CT ABDOMEN: Liver: Normal Spleen: Normal Pancreas: Normal Adrenal glands: The adrenal glands are normal. Gallbladder: Normal Kidneys: No masses are evident. No hydronephrosis is present. No cysts are present. No renal stone s are evident. Aorta: Vascular calcification is within the aorta. Inferior vena cava: Normal. CT PELVIS: There is an anterior periumbilical wall hernia with opening of 1.7 cm. No loops of bowel a re involved. Loops of bowel within the abdomen and pelvis are normal. A few diverticuli within the sigmoid colon. No acute diverticulitis. There are loops of bowel which are incompletely distended or lack oral co ntrast limiting their evaluation. Appendix: Normal as visualized. Urinary bladder: Normal. Genitourinary structures: Mildly prominent prostate Osseous structures: No suspicious lytic or sclerotic lesions. IMPRESSION: 1. No suspicious abnormality to account for left flank pain. 2. Mild diverticulosis without acute diverticulitis. 3. Anterior abdominal wall hernia in the periumbilical region containing mesenteric fat. [facility], , 12/03/2024 12:54 PM
== END | disposition home or self-care (01) ==
LOC: RADCTMAIN 12:17
PROVIDERS: ATTEND Emergency Medicine
DX: K43.9 Ventral hernia without obstruction or gangrene (principal); K57.30 Diverticulosis of large intestine without perforation or abscess without bleeding
CPT/HCPCS: 74176